=== PATIENT | female | born 1935 | race Caucasian/White ===

== ENCOUNTER 2019-05-21 07:24 | Inpatient (IN) | payer MEDICARE, OTHER ==
[~2019-05-21] VITALS: Ht 157.5 cm; Wt 82.0 kg
[~2019-05-21 07:24] MED LIST: ACETIC ACID2 % AS; ANTIVERT12.5 MG PO; CIPRO500 MG PO; CIPROFLOXACN500 MG PO; CLARITHROMYC500 MG PO; COUMADIN2.5 MG PO; DEPO-MEDROL80 MG/ML IM; DIFLUCAN150 MG PO; FLONASE NASAL50 MCG; HYDROCHLOROT25 MG OR; HYDROCHLOROT25 MG PO; LASIX 80 MG TAB80 M1 PO; LEVAQUIN750 MG PO; LEVOTHYROXIN25 MC1 OR; MEDDOSEPAK OR; METOPROL TAR25 M1 PO; MUCINEX600 MG PO; OMNICEF300 MG PO; PHENERGAN12.5 MG PO; PHENERGAN25 MG/ML IM; PREDNISONE20 MG PO; PROAIR HFA IN; SOLU-MEDROL125 MG IM; SYNTHROID25 MCG PO; TRIAM/HCTZ1 CAP OR; VENTOLIN HFA IN; ZITHROMAX500 MG PO; ZYRTEC10 MG PO
--- NOTE | 2019-05-21 07:38 | NUR ---
PT IMMIDIATLY TO ROOM FOR BEDSIDE TRIAGE
[2019-05-21 08:06] LABS: HEMATOCRIT 38.2 % (37.0-47.0); HEMOGLOBIN 12.6 g/dl (12.0-16.0); IMMATURE GRANULOCYTES 0.7 % (0.0-5.0); MEAN CELL VOLUME 84.7 fL CALC (80.0-100.0); MEAN CORPUSCULAR HGB 27.9 pG CALC (26.0-32.0); NEUT# 2.54 thou/uL (2.00-7.15); RED BLOOD COUNT 4.51 mill/uL (4.20-5.60); RED CELL DISTRI WIDTH 13.5 % (11.5-15.5)
[2019-05-21 08:08] LABS: GFR > 60 ML/MIN (>=60 (CALC)); GFR FOR AFR.AMER. > 60 ML/MIN (>=60 (CALC))
[2019-05-21 08:24] LABS: ALBUMIN 4.2 g/dL (3.2-5.0); ALKALINE PHOSPHATASE 67 u/l (38-126); ANION GAP 12 (6-22 (CALC)); BILIRUBIN, TOTAL 0.5 mg/dL (0.0-1.4); BUN 17 mg/dL (8-23); BUN/CREATININE RATIO 31 (12-20 (CALC)); CARBON DIOXIDE 29 mmol/l (22-30); CHLORIDE 101 mmol/l (95-108); CREATININE 0.6 mg/dL (0.5-1.0); GFR > 60 ML/MIN (>=60 (CALC)); GFR FOR AFR.AMER. > 60 ML/MIN (>=60 (CALC)); LIPASE 142 u/l (23-300); POTASSIUM 3.8 mmol/l (3.5-5.1); SGOT/AST 27 u/l (9-36); SODIUM 138 mmol/l (137-146); TOTAL PROTEIN 7.2 g/dL (6.3-8.2)
--- NOTE | 2019-05-21 08:30 | NUR ---
PT SITTING UP ON STRETCHER; NO APPARENT S/S OF DISTRESS NOTED; VSS; PT C/O CONTINUED PAIN TO EPIGASTRIC AREA; WILL CONTINUE TO MONITOR
--- NOTE | 2019-05-21 09:30 | NUR ---
DR MOY AT BEDSIDE TO DISCUSS POC AND PLAN TO ADMIT; VSS; WILL CONTINUE TO MONITOR
[2019-05-21] MEDS ORDERED: TOPROL XL25 M1 PO (10:18)
--- NOTE | 2019-05-21 10:30 | NUR ---
PT SITTING UP ON STRETCHER; NO S/S OF DISTRESS NOTED; STATES PAIN HAS UNCHANGED; VSS; PT ADVISED ON CONTINUED WAIT TIME; VERBALIZES UNDERSTANDING; WILL CONTINUE TO MONITOR
--- NOTE | 2019-05-21 10:50 | NUR ---
REPORT REC FROM AMAN HAHN
[2019-05-21 10:57] LABS: INTERNATIONAL NORMALIZED RATIO 2.4 RATIO (0.7-1.3); PROTHROMBIN TIME 23.8 SECONDS (9.0-12.5)
--- NOTE | 2019-05-21 11:01 | NUR ---
Admission Note Report Given to: REZA MELGAR Transported by: X Wheelchair Stretcher Transported with: X Nurse Transporter X Patent IV O2 X Prepress Supervisor
--- NOTE | 2019-05-21 11:03 | NUR ---
PT ARRIVED VIA WHEELCHAIR ACCOMPANIED BY AMAN HAHN. PT A&O X3. COMPLAINS OF CHEST DISCOMFORT. NO DISTRESS NOTED. COARSE BREATH SOUNDS HEARD UPON AUSCULTATION. NO NAUSEA OR SOB. BILATERAL LEG SWELLING WITH TENDERNESS WITH TOUCH. ORIENTED PT TO ROOM. PT ABLE TO AMBULATE BY HERSELF WITH A STEADY GAIT. DISCUSSED POC. ASSESSMENT COMPLETED AT THIS TIME. CALL LIGHT IN REACH. CONTINUE TO MONITOR.
[2019-05-21 11:28] LABS: URINE BILIRUBIN - DIPSTICK NEGATIVE (NEGATIVE); URINE BLOOD DIPSTICK NEGATIVE (NEGATIVE); URINE COLOR YELLOW; URINE GLUCOSE - DIPSTICK NEGATIVE (NEGATIVE); URINE KETONE NEGATIVE (NEGATIVE); URINE LEUK ESTERASE NEGATIVE (NEGATIVE); URINE NITRITE - DIPSTICK NEGATIVE (Negative); URINE PROTEIN - DIPSTICK NEGATIVE (NEG-TRACE); URINE SPECIFIC GRAVITY <=1.005; URINE UROBILINOGEN - DIPSTICK 0.2 E.U./dL (0.2)
[2019-05-21 11:35] VITALS: BP 159/68
--- NOTE | 2019-05-21 12:45 | NUR ---
AT PT REQUEST, COUMADIN & METOPROLOL TIME SCHEDULE CHANGED. PT STATES THAT SHE WOULD LIKE TO GET THEM CLOSE TO HER HOME SCHEDULE. EXPLAINED TO PT THAT PHARMACY WOULD BE CONTACTED. PT VERBALIZES UNDERSTANDING. ASKED PT HOW CP WAS DOING, PT VERBALIZED DISCOMFORT IN CHEST. OFFERED PT MEDICATION, PT DENIED AND STATED SHE DOESN'T TAKE ANYTHING FOR PAIN UNLESS ITS ABSOLUTELY NECESSARY. CONTINUE TO MONITOR.
[2019-05-21 14:55] VITALS: BP 142/76
--- NOTE | 2019-05-21 19:00 | NUR ---
REPORT FROM NOVA COBB. PT NOTED SITTING UP IN BED. NO APPARENT DISTRESS NOTED. ALERT AND ORIENTED. PT C/O COUGH AND REQUESTING COUGH MEDICATION, WILL MEDICATED WITH PRN COUGH MEDICATION ORDERED. IV SITE APPEARS HEALTHY. DISCUSSED POC. PT VERBALIZED UNDERSTANDING. PT DENIES ANY OTHER WANTS OR NEEDS. CALL LIGHT WITHIN REACH. WILL CONTINUE TO MONITOR.
[2019-05-21 19:36] VITALS: BP 127/60
--- NOTE | 2019-05-21 23:01 | NUR ---
PT RESTING IN BED WITH EYES CLOSED. NO APPARENT DISTRESS NOTED. CALL LIGHT WITHIN REACH. WILL CONTINUE TO MONITOR.
[2019-05-21 23:24] VITALS: BP 138/67
[2019-05-22 03:35] VITALS: BP 136/61
--- NOTE | 2019-05-22 03:45 | NUR ---
PT RESTING IN BED. DENIES ANY PAIN OR DISCOMFORT. NO CURRENT WANTS OR NEEDS AT THIS TIME. CALL LIGHT WITHIN REACH. WILL CONTINUE TO MONITOR.
[2019-05-22 05:32] LABS: HEMOGLOBIN 11.8 g/dl (12.0-16.0); IMMATURE GRANULOCYTES 0.7 % (0.0-5.0); MEAN CELL VOLUME 85.5 fL CALC (80.0-100.0); MEAN CORPUSCULAR HGB CONC 32.8 g/L CALC (32.0-36.0); NEUT# 2.48 thou/uL (2.00-7.15); RED BLOOD COUNT 4.21 mill/uL (4.20-5.60); RED CELL DISTRI WIDTH 13.2 % (11.5-15.5)
[2019-05-22 05:47] LABS: INTERNATIONAL NORMALIZED RATIO 2.3 RATIO (0.7-1.3); PROTHROMBIN TIME 23.5 SECONDS (9.0-12.5)
[2019-05-22 05:50] LABS: CHOLESTEROL HDL RATIO 2.6 (<4.4 (CALC))
[2019-05-22 05:51] LABS: ANION GAP 14 (6-22 (CALC)); BUN 17 mg/dL (8-23); BUN/CREATININE RATIO 39 (12-20 (CALC)); CARBON DIOXIDE 25 mmol/l (22-30); CHLORIDE 104 mmol/l (95-108); CREATININE 0.4 mg/dL (0.5-1.0); GFR > 60 ML/MIN (>=60 (CALC)); GFR FOR AFR.AMER. > 60 ML/MIN (>=60 (CALC)); MAGNESIUM 1.7 mg/dL (1.6-2.3); POTASSIUM 4.1 mmol/l (3.5-5.1); SODIUM 138 mmol/l (137-146)
[2019-05-22 07:00] VITALS: BP 135/45
--- NOTE | 2019-05-22 07:05 | NUR ---
PT RESTING QUIETLY IN BED. NO RESP. DISTRESS NOTED. NO COMPLAINTS VOICED AT THIS TIME. ASSESSMENT COMPLETED. SKIN WARM AND DRY. COLOR PINK. LUNGS COARSE ESTELLA. WILL CONTINUE TO MONITOR. CALL LIGHT WITHIN REACH.
[2019-05-22 12:05] VITALS: BP 148/67
[2019-05-22 16:00] VITALS: BP 140/54
[2019-05-22 18:47] VITALS: BP 149/55
--- NOTE | 2019-05-22 19:05 | NUR ---
REPORT FROM BARBIE COBB. PT SITTING UP IN BED. ALERT AND ORIENTED. NO APPARENT DISTRESS NOTED. PT DENIES ANY PAIN OR DISCOMFORT. IV SITE APPEARS HEALTHY, PT CONCERNED THAT GIVEN THE POSITION IT MIGHT GET DISPLACED DURING SLEEP. IV SITE COVERED WITH GAUZE AND STRETCH NETTING AT THIS TIME. WATER RESOURCE AGENT IN PLACE. DISCUSSED POC. PT VERBALIZED UNDERSTANDING. CALL LIGHT WITHIN REACH. WILL CONTINUE TO MONITOR.
--- NOTE | 2019-05-22 23:08 | NUR ---
PT CALLED CATEGORY CONSULTANT TO ROOM C/O RASH ON FACE STATING IT WAS FROM GI COCKTAIL SHE HAD TAKEN AT 1300 TODAY. PT STATES SHE WASHED FACE AND APPLIED EXPENSIVE LOTION FROM HOME AND THAT FACE FELT DRY AND ITCHY. CHEEKS APPEAR PINK WITH NO APPARENT RASH OR RAISED AREAS NOTED. EDUCATION AND CALM REASSURANCE PROVIDED TO PT. WILL CONTINUE TO MONITOR.
[2019-05-22 23:54] VITALS: BP 152/64
[2019-05-23] VITALS (7 sets, daily range): BP systolic 153–178; BP diastolic 52–77
--- NOTE | 2019-05-23 03:12 | NUR ---
PT RESTING IN BED WITH EYES CLOSED. NO APPARENT DISTRESS NOTED. CALL LIGHT WITHIN REACH. WILL CONTINUE TO MONITOR.
[2019-05-23 05:12] LABS: HEMATOCRIT 33.9 % (37.0-47.0); HEMOGLOBIN 11.1 g/dl (12.0-16.0); IMMATURE GRANULOCYTES 0.6 % (0.0-5.0); MEAN CELL VOLUME 85.4 fL CALC (80.0-100.0); MEAN CORPUSCULAR HGB CONC 32.7 g/L CALC (32.0-36.0); NEUT# 6.42 thou/uL (2.00-7.15); RED BLOOD COUNT 3.97 mill/uL (4.20-5.60); RED CELL DISTRI WIDTH 13.8 % (11.5-15.5)
[2019-05-23 05:18] LABS: INTERNATIONAL NORMALIZED RATIO 2.3 RATIO (0.7-1.3); PROTHROMBIN TIME 23.5 SECONDS (9.0-12.5)
[2019-05-23 05:28] LABS: ANION GAP 11 (6-22 (CALC)); BUN 25 mg/dL (8-23); BUN/CREATININE RATIO 43 (12-20 (CALC)); CARBON DIOXIDE 26 mmol/l (22-30); CHLORIDE 104 mmol/l (95-108); CREATININE 0.6 mg/dL (0.5-1.0); GFR > 60 ML/MIN (>=60 (CALC)); GFR FOR AFR.AMER. > 60 ML/MIN (>=60 (CALC)); MAGNESIUM 1.9 mg/dL (1.6-2.3); POTASSIUM 4.3 mmol/l (3.5-5.1); SODIUM 137 mmol/l (137-146)
--- NOTE | 2019-05-23 07:40 | NUR ---
ASSESSMENT IS COMPLETED: IV SITE IS FREE FROM REDNESS OR EDEMA. HR IS REG, PULSES ARE STRONG X4, ABD IS SOFT WITH ACTIVE BS. BREATH SOUNDS ARE COARSE, AND CLEARING. CONTINUE TO OBSERVE AND MONITOR.
--- NOTE | 2019-05-23 12:20 | NUR ---
PT IS RELAXING IN BED WANTING THE IV OUT. WAITING FOR DR. SIU TO VISIT. CONTINUE TO MONITOR.
--- NOTE | 2019-05-23 16:08 | NUR ---
SPOKE WITH PT'S DAUGHTER IN [place] INQUIRED ABOUT MOTHER. EXPLAINED ABOUT THE BREATHING TX AND SOLUMEDROL MAKING HER SHAKY. VERBALIZED UNDERSTANDNG.
--- NOTE | 2019-05-23 16:15 | NUR ---
PT IS SITTING IN THE CHAIR. HAS BEEN TALKING TO HER FAMILY. IV SITE IS FREE FROM REDNESS OR EDEMA. CONTINUE TO OBSERVE AND MONITOR.
--- NOTE | 2019-05-23 19:30 | NUR ---
PATIENT SITTING UP IN CHAIR AT THIS TIME. PATIENT IS AWAKE ALERT ORIENTED AND QUITE ANXIOUS. PATIENT VERBALIZES CONCERNS REGUARDING MEDICAION AND POSSIBLE S/E. PATIENT "SHAKEY"-KIKA AFTER SOLU-MEDROL AND NEB TREATMENTS. EXPLANATION OF POSSIBLE S/E WERE GIVEN. VERBALIZES UNDERSTANDING OF THE STATED. DOSE OF SOLU-MEDROL WAS DECREASED. VOIDING QS YELLOW URINE IN BR- WEARS HER O2 ON AND OFF. SOB WITH EXHERSION. PATIENT WITH SWELLING TO BLE. STATES THAT SHE HAS PROBLEM WITH LYMPHEDEMA-ENCOURAGED PATEINT TO ELEVATED FEET WHEN POSSIBLE. TELE MONITOR IN PLACE. IV SITE TO RAC INTACT AND APPEARS HEALTHY AT THIS TIME SAFETY PRECAUTIONS REINFORCED. CALL LIGHT IN REACH. WILL CONT TO MONITOR. .
--- NOTE | 2019-05-23 20:30 | NUR ---
PATIENT RESTING IN BED-SEEMS CALMER AT THIS TIME. PATIENT MEDICATED HS MEDS. REFUSED ROBITUSSIN SC WHEN OFFERED-DIDN'T WANT ANYTHING WITH CODEINE IN IT. CALL LIGHT IN REACH. WILL CONT TO MONITOR.
--- NOTE | 2019-05-23 22:45 | NUR ---
RESTING IN BED-PROVIDED WITH HOT TEA PER REQUEST. MEDICATED WITH SONATA 5MG PO FOR SLEEP. REMAINS CALMER AT THIS TIME. O2 VIA NASAL CANNULA IN PLACE. CALL LIGHT IN REACH. WILL CONT TO MONITOR.
[2019-05-24] VITALS (33 sets, daily range): BP systolic 95–185; BP diastolic 53–111
--- NOTE | 2019-05-24 05:17 | NUR ---
PATIENT RESTING IN BED-BP185/83, HR-60. PATIENT MEDICATED WITH APRESOLINE 10MG IVP. SAFETY PRECAUTIONS REINFORCED. CALL LIGHT IN REACH.
[2019-05-24 05:33] LABS: PROTHROMBIN TIME 20.7 SECONDS (9.0-12.5)
--- NOTE | 2019-05-24 06:29 | NUR ---
PATIENT CALLED [facility] REQUESTING NURSE. RESPONDED TO PATIENT ROOM- PATIENT EXTREMELY ANXIOUS AND C/O NOT FEELING RIGHT. HR-139 AT THIS TIME. BP-153/88, O2 SAT 97%. O2 APPLIED. REASSURANCE GIVEN. WILL CONT TO MONITOR.
--- NOTE | 2019-05-24 06:45 | NUR ---
EKG DONE AT BEDSIDE.-A-FIB RVR. DR. SIU CALLED AND NEW ORDERS RECIEVED. NSG HYDROMETEOROLOGIST NOTIFIED OF TRANSFER TO ICU ORDER. AWAITING BED. CALL LIGHT IN REACH. WILL CONT TO MONITOR.
--- NOTE | 2019-05-24 07:08 | NUR ---
PATIENT RESTING IN BED-CARDIZEM 10MG IVP GIVEN SLOWLY OVER 5MIN-FLUSHED PER PROTOCOL. SPOKE TO ELISABETH IN ER AND STATES STILL A-FIB RVR 140'S. BP-150/94, WILL CONT TO MONITOR.
--- NOTE | 2019-05-24 07:43 | NUR ---
female pt received to ICU bed 5 via bed in stable condition accompanied by MS RNs x2; bedside report received; assessment completed at this time; pt alert and oriented; denies pain/ chest pain; no n/v noted; pt denies palpitations at this time; resp even and unlabored; lungs clear; skin color wnl; o2 per nc at 2L; hr irreg; strong pulses; 2+ edema noted to ble; pt admits to lymphedema; afib 130-140s on monitor; abd soft with bs present; no bm noted per parts data writer; pt admits to voiding without pain or burning; no urine to inspect at this time; bsc; #18 flushed and patent to rac; no redness or edema noted at site; plan of care/ meds/ cardizem gtt explained; call light within reach; will continue to monitor
--- NOTE | 2019-05-24 07:44 | NUR ---
pt transferred to icu bed 5 via bed with staff and belongings.
--- NOTE | 2019-05-24 08:05 | NUR ---
Dr Castro informed per this underwriter pt remains afib rvr with hr of 130-140s; cardizem gtt to be started
--- NOTE | 2019-05-24 08:26 | NUR ---
cardizem gtt explained and initiated at 10mg/hr; afib 146 on monitor
--- NOTE | 2019-05-24 08:30 | NUR ---
#24 started to rh x1 attempt per Benjamín Pulido RN
--- NOTE | 2019-05-24 09:30 | NUR ---
Dr Castro present at bedside to assess pt and discuss plan of care;
--- NOTE | 2019-05-24 10:08 | NUR ---
awake in bed; visitor present at bedside; no apparent distress noted; pt offers no complaints; iv intact; cardizem gtt infusing at 15 mg/hr; no redness or edema noted at sites; call light within reach; will continue to monitor
[2019-05-24 10:22] LABS: ANION GAP 11 (6-22 (CALC)); BUN 24 mg/dL (8-23); BUN/CREATININE RATIO 43 (12-20 (CALC)); CARBON DIOXIDE 26 mmol/l (22-30); CHLORIDE 104 mmol/l (95-108); CREATININE 0.6 mg/dL (0.5-1.0); GFR > 60 ML/MIN (>=60 (CALC)); GFR FOR AFR.AMER. > 60 ML/MIN (>=60 (CALC)); MAGNESIUM 1.9 mg/dL (1.6-2.3); POTASSIUM 4.3 mmol/l (3.5-5.1); SODIUM 137 mmol/l (137-146)
--- NOTE | 2019-05-24 12:15 | NUR ---
pt awake in bed; no apparent distress noted; pt offers no complaints; declined lunch; iv intact and patent; cardizem gtt at 15 mg/hr; aflutter 77 on monitor; o2 per nc; call light within reach; will continue to monitor
--- NOTE | 2019-05-24 12:50 | NUR ---
pt awake in bed; offers complaints of feeling "lousy"; service writer asked pt to specify; pt states "well my back hurt like it did when I had pleursy"; pt deny pain with deep breathing; self repositioning encouraged; pt declined lunch; banana provided per request; pt states banana is too ripe; will continue to monitor
--- NOTE | 2019-05-24 13:30 | NUR ---
afib/flutter 60s -70s on monitor; cardizem gtt titrated to 10 mg/hr
--- NOTE | 2019-05-24 14:01 | NUR ---
awake in bed; no apparent distress noted; iv intact and patent; no redness or edema noted at site; afib 70s on monitor; cardinzem gtt at 10 mg/hr; o2 per nc; call light within reach; will continue to monitor
--- NOTE | 2019-05-24 14:16 | NUR ---
pt admits to taking Coumadin at bedtime; hospital policy explained/ medication normally administered at 1400; pt refusing med; will notify Rx
--- NOTE | 2019-05-24 15:19 | NUR ---
visitors x2 present at bedside; hr noted to increase to 90-100s
--- NOTE | 2019-05-24 16:01 | NUR ---
awake in bed conversing on cell phone; no apparent distress noted; pt offers no complaints; iv intact; cardizem gtt infusing at 5 mg/hr; no redness or edema noted at site; o2 per nc; afib on monitor; call light within reach; will continue to monitor
--- NOTE | 2019-05-24 16:55 | NUR ---
PT CONVERTED TO NSR 60S ON MONITOR
--- NOTE | 2019-05-24 18:00 | NUR ---
awake in bed; visitor present at bedside; no apparent distress noted; pt offers no complaints; iv intact and patent; cardizem gtt cont at 5 mg/hr; sr 90s on monitor; o2 per nc; call light within reach
--- NOTE | 2019-05-24 19:30 | NUR ---
REPORT RECEIVED FROM JOVANI SCHULER. PT RESTING IN BED SEMI FOWLERS; ALERT AND ORIENTED. DENIES PAIN. RESPIORATIONS EVEN AND UNLABORED ON OXYGEN; OXYGEN REMOVED PER PT REQUEST AND NOW ON ROOM AIR; SPO2 96%. CARDIZEM DRIP DISCONTINUED AT THIS TIME AND IV FLUSHED. PT REQUESTED TO GET OUT OF BED AND INTO CHAIR; NOW SITTING UP IN CHAIR AND SET UP FOR ORAL CARE. PT ALSO REQUESTING GINGERALE AND ICE. PLAN OF CARE REVIEWED. PT ENCOURAGED TO VERBALIZE CONCERNS. STATES UNDERSTANDING. SAFETY MEASURES IN PLACE. CALL LIGHT WITHIN REACH.
--- NOTE | 2019-05-24 21:46 | NUR ---
UP TO BS FOR SMALL BOWEL MOVEMENT AND VOID. NOW REPOSITIONED INTO BED SEMI FOWLERS WITH ALL BELONGINGS WITHIN REACH. PT STATES THAT AT HOME SHE ADJUSTS HER COUMADIN DOSE DEPENDING ON HER EATING SCHEDULE; AGREED TO SCHEDULED DOSE TONIGHT OF 7.5MG. NO OTHER REQUESTS OR CONCERNS AT THIS TIME.
--- NOTE | 2019-05-24 23:37 | NUR ---
SONATA GIVEN TO HELP WITH SLEEP PER PT REQUEST ALONG WITH TYLENOL FOR HEADCHE. IV SITES APPEAR HEALTHY AND FLUSH. PT REMAINS ON ROOM AIR; NO SOB; SPO2 96%. PT SITTING UP WATCHING TV. CALL LIGHT WITHIN REACH.
[2019-05-25] VITALS (8 sets, daily range): BP systolic 119–172; BP diastolic 54–85
--- NOTE | 2019-05-25 01:52 | NUR ---
PT ASLEEP WITH NO SIGNS OF DISTRESS. RESPIRATIONS EVEN AND UNLABORED ON ROOM AIR. NSR ON TELEMETRY HEART RATE IN THE 70'S. VSS. WILL CONTINUE TO MONITOR. CALL LIGHT WITHIN REACH.
--- NOTE | 2019-05-25 04:51 | NUR ---
PT AWAKE AND ALERT; RESTING IN SEMI FOWLERS WATCHING TV. NO REQUESTS OR CONCERNS AT THIS TIME. CALL LIGHT WITHIN REACH.
--- NOTE | 2019-05-25 08:00 | NUR ---
PT SEEN AWAKE, ALERT, ORIENTED X 3, OOB IN CHAIR. PT WITH LEFT LUNG BASE SLIGHT WHEEZE, RA. NO SHORTNESS OF BREATH NOTED. PT STATES BM TODAY. SKIN INTACT.
[2019-05-25 09:12] LABS: INTERNATIONAL NORMALIZED RATIO 1.8 RATIO (0.7-1.3); PROTHROMBIN TIME 18.4 SECONDS (9.0-12.5)
--- NOTE | 2019-05-25 10:00 | NUR ---
PT BACK IN BED. PT SEEN BY DR SIU THIS MORNING, NO NEW ORDERS.
--- NOTE | 2019-05-25 14:00 | NUR ---
ASSISTED UP TO BSC FOR URINATION.
--- NOTE | 2019-05-25 17:08 | NUR ---
PT SEEN MOVING IN ROOM TO CHAIR, GAIT STEADY. NO COMPLAINTS, NO EVIDENCE OF DISTRESS. NO SHORTNESS OF BREATH.
--- NOTE | 2019-05-25 19:45 | NUR ---
sitting in bedside chair. nad. fighting vehicle infantryman shows sinus rhythm hr 74. #24 rt hand saline lock. c/o tenderness @ site but doesn't want this newspaper writer to d/c because "i'm a hard stick & i'm going home tomorrow." #18 rac saline lock. po fluids taken well. voids well per bathroom. fall precautions cont.
--- NOTE | 2019-05-25 20:50 | NUR ---
sonata 5mg po given for sleep. cont to c/o pain rt hand-iv d/c'd with cath intact.
--- NOTE | 2019-05-25 22:00 | NUR ---
eyes closed. no distress.
--- NOTE | 2019-05-26 00:01 | NUR ---
eyes closed. no distress. awake overnight monitor shows sinus amara hr 56.
[2019-05-26 01:00] VITALS: BP 164/84
--- NOTE | 2019-05-26 02:00 | NUR ---
awake. no distress. no c/o
[2019-05-26 03:00] VITALS: BP 147/75
--- NOTE | 2019-05-26 04:00 | NUR ---
awake. no distress. air sampling and monitoring shows sinus amara hr 52.
[2019-05-26 05:00] VITALS: BP 177/82
--- NOTE | 2019-05-26 05:10 | NUR ---
lab here. blood drawn.
[2019-05-26 05:30] LABS: HEMATOCRIT 35.6 % (37.0-47.0); HEMOGLOBIN 11.7 g/dl (12.0-16.0); MEAN CORPUSCULAR HGB 27.9 pG CALC (26.0-32.0); MEAN CORPUSCULAR HGB CONC 32.9 g/L CALC (32.0-36.0); RED BLOOD COUNT 4.19 mill/uL (4.20-5.60); RED CELL DISTRI WIDTH 13.6 % (11.5-15.5)
[2019-05-26 05:46] LABS: INTERNATIONAL NORMALIZED RATIO 2.1 RATIO (0.7-1.3)
[2019-05-26 05:50] LABS: ANION GAP 11 (6-22 (CALC)); BUN 36 mg/dL (8-23); BUN/CREATININE RATIO 65 (12-20 (CALC)); CARBON DIOXIDE 25 mmol/l (22-30); CHLORIDE 105 mmol/l (95-108); CREATININE 0.6 mg/dL (0.5-1.0); GFR > 60 ML/MIN (>=60 (CALC)); GFR FOR AFR.AMER. > 60 ML/MIN (>=60 (CALC)); POTASSIUM 4.2 mmol/l (3.5-5.1); SODIUM 137 mmol/l (137-146)
--- NOTE | 2019-05-26 06:00 | NUR ---
awake. expresses wish to go home today.
--- NOTE | 2019-05-26 07:45 | NUR ---
PT UP IN CHAIR; ANXIOUS ABOUT GOING HOME; COMPLAINTS OF ZUNIGA 4/10, MEDICATED ORDERED; SR 60 ON THE MONITOR; PT ATE MIN OF BREAKFAST; CALL FAM WITHIN REACH; WILL CONTINUE TO MONITOR
[2019-05-26 08:00] VITALS: BP 144/66
--- NOTE | 2019-05-26 08:30 | NUR ---
DR. SIU IN TO SEE PT; PLAN OF CARE DISCUSSED;
[2019-05-26] MEDS ORDERED: VANTIN200 M1 PO (09:18)
[2019-05-26] MEDS ORDERED: MEDDOSEPAK PO (09:18)
--- NOTE | 2019-05-26 10:00 | NUR ---
IV ANTIBIOTICS STARTED AT THIS TIME; COFFEE PROVIDED PER PT REQUEST; CALL FAM WITHIN REACH; WILL CONTINUE TO MONITOR
[2019-05-26 12:00] VITALS: BP 159/86
--- NOTE | 2019-05-26 13:19 | NUR ---
Discharge instructions given. Patient verbalizes understanding of same. Discharged in stable condition via Wheelchair to Home with friend. All belongings sent with pt.
== END 2019-05-26 13:10 | disposition home or self-care (01) | DRG 194 ==
LOC: ED 07:24 → ED-I 09:20 → ED 10:09 → MS2 10:10 → ICU 05-23 19:57
PROVIDERS: Family Medicine; Nurse Practitioner Family; ADMIT Internal Medicine; ATTEND Internal Medicine
DX: J18.9 Pneumonia, unspecified organism (principal); J44.0 Chronic obstructive pulmonary disease with (acute) lower respiratory infection; I48.0 Paroxysmal atrial fibrillation; I16.0 Hypertensive urgency; I10 Essential (primary) hypertension; E03.9 Hypothyroidism, unspecified; M94.0 Chondrocostal junction syndrome [Tietze]; Z90.2 Acquired absence of lung [part of]; Z79.01 Long term (current) use of anticoagulants
CPT/HCPCS: G0378